=== PATIENT | male | born 1975 | race Caucasian/White ===

== ENCOUNTER 2020-12-08 03:30 | Emergency (ER) | payer OTHER ==
[~2020-12-08] VITALS: Ht 172.7 cm; Wt 71.0 kg
[2020-12-08 04:19] LABS: BASOPHILS % 0.9 % (0.0-2.0); EOSINOPHILS % 1.6 % (0.0-5.0); HEMATOCRIT. 40.3 % (42.0-52.0); HEMOGLOBIN. 14.1 g/dL (14.0-18.0); MEAN CORPUSCULAR HEMOGLOBIN 34.6 pg (28.0-32.0); MEAN PLATELET VOLUME 7.9 fl (7.4-10.4); MONOCYTES % 6.5 % (2.0-8.0); PLATELET 247 x1000/uL (130-400); RED BLOOD CELL COUNT 4.07 mill/uL (4.7-6.1); RED CELL DISTRIBUTION WIDTH 13.1 % (11.6-14.6)
[2020-12-08 04:26] LABS: CHLORIDE 108 mEq/L (98-107)
[2020-12-08] MEDS ORDERED: IOHEXOL-350 100 ML BOTTLE ONE (06:07)
[2020-12-08] MEDS ORDERED: IBUP-2029 MT (06:23)
[2020-12-08] MEDS ORDERED: KETOROLAC 15MG/ML VIAL IV ONE (06:30)
[2020-12-08 06:47] VITALS: BP 118/73
== END 2020-12-08 06:50 | disposition home or self-care (01) ==
LOC: ER 03:46
DX: R07.89 Other chest pain (principal); F17.200 Nicotine dependence, unspecified, uncomplicated
CPT/HCPCS: 36415; 71045; 71275; 80053; 85025; 96374; 99285; J1885; Q9967

== ENCOUNTER 2021-03-28 12:55 | Emergency (ER) | payer MEDICAID ==
[~2021-03-28] VITALS: Ht 175.3 cm; Wt 73.0 kg
[~2021-03-28 12:55] MED LIST: IBUP-2029 MT
[2021-03-28] MEDS ORDERED: IBUPROFEN 600MG TABLET PO STA (13:22)
[2021-03-28] MEDS ORDERED: IBUP-2029 MT (14:51)
[2021-03-28 15:16] VITALS: BP 120/86
== END 2021-03-28 15:16 | disposition home or self-care (01) ==
LOC: ER 12:55
DX: S09.8XXA Other specified injuries of head, initial encounter (principal); Y04.0XXA Assault by unarmed brawl or fight, initial encounter; Y93.89 Activity, other specified; Y92.89 Other specified places as the place of occurrence of the external cause
CPT/HCPCS: 99284